=== PATIENT | female | born 1955 | race Caucasian/White ===

== ENCOUNTER 2019-06-10 07:41 | Day surgery (SDC) | payer MEDICARE, OTHER ==
[~2019-06-10 07:41] MED LIST: Lactated Ringers 1,000 ML IV SCH; Lidocaine 1%/Sod Bicarbonate in NS 8.4% 1 ML Syringe IDERM PRN; Sodium Chloride 0.9% 10 ML Syringe FLUSH PRN
[2019-06-10] MEDS ORDERED: fentaNYL 100 MCG/2 ML SDV ONE (07:59)
[2019-06-10] MEDS ORDERED: Midazolam 1 MG/ML 2 ML SDV ONE (07:59)
[2019-06-10] MEDS ORDERED: Propofol 200 MG/20 ML SDV ONE (07:59)
[2019-06-10] MEDS ORDERED: Scopolamine 1.5 MG Transdermal Patch TOP SCH (08:00)
[2019-06-10] MEDS ORDERED: Lidocaine 1% 6 ML ONE (08:00)
[2019-06-10] MEDS ORDERED: Ketamine 500 mg/10 ML MDV ONE (08:03)
--- NOTE | 2019-06-10 08:24 | PCM.PREANE ---
Preanesthetic Assessment - Procedure Proposed Procedure: Incisional breast biopsy - Anesthesia/Transfusion/Family Hx Anesthesia History: Prior Anesthesia Reaction Transfusion History: No Prior Transfusion(s) - Review of Systems General: No Symptoms Pulmonary: No Symptoms Cardiovascular: No Symptoms Gastrointestinal: No Symptoms Neurological: No Symptoms Other: Reports: None - Physical Assessment NPO Status Date: 06/09/19 NPO Status Time: 22:00 Mental Status: Alert & Oriented x3 Airway Class: Mallampati = 3 Dentition: Reports: Normal Dentition Thyro-Mental Finger Breadths: 3 Mouth Opening Finger Breadths: 3 ROM/Head Extension: Full Lungs: Clear to Auscultation, Normal Respiratory Effort Cardiovascular: Regular Rate, Regular Rhythm - Lab Values: Laboratory Last Values POC Glucose 82 mg/dL (80-115) 06/10/19 08:05 - Allergies Allergies/Adverse Reactions: Allergies Allergy/AdvReac Type Severity Reaction Status Date / Time tramadol HCl [From Ultram] Allergy Itching Verified 06/09/19 15:11 gabapentin AdvReac Hallucinati Verified 06/09/19 15:41 ons morphine AdvReac Hallucinati Verified 06/09/19 15:11 ons pregabalin [From Lyrica] AdvReac Hallucinati Verified 06/09/19 15:41 ons - Anesthesia Plan Beta Ecdrick: Atenolol Med Last Dose Date: 06/10/19 Med Last Dose Time: 22:00 - Acknowledgements Anesthesia Type Planned: General Anesthesia, MAC Pt an Appropriate Candidate for the Planned Anesthesia: Yes Alternatives and Risks of Anesthesia Discussed w Pt/Guardian: Yes Pt/Guardian Understands and Agrees with Anesthesia Plan: Yes PreAnesthesia Questionnaire HEENT History: Reports: Impaired Vision Other HEENT History: wears glasses, occipital neuralgia Cardiovascular History: Reports: CAD, High Cholesterol, Hypertension, [place], Stents Other Cardiovascular History: stents in 2002 and 2004, coronary atherosclerosis Other Respiratory History: Moderate snoring Gastrointestinal History: Reports: GI Bleed, PUD Other Gastrointestinal History: gastric ulcer; gastric bypass surgery 01/2009 Genitourinary History: Reports: Renal Calculus, Urinary Incontinence Other Genitourinary History: atrophic vaginitis, decreased kidney function, [employer]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: Reports: Other (See Below) Other OB/BYN History: vaginal discharge, vulvar vestibulitis Musculoskeletal History: Reports: Back Pain, Chronic, Osteoarthritis, Osteoporosis Other Musculoskeletal History: ankylosing spondylitis, myofascial pain Neurological History: Reports: Other (See Below) Other Neuro History: occipatal neuralgia Endocrine/Metabolic History: Reports: Hypothyroidism, Obesity/BMI 30+, Osteoporosis Other Endocrine/Metabolic History: abnormal glucose, diabetes which resolved with weight loss after gastric bypass, hashimotos Hematologic History: Reports: Blood Transfusion(s) Oncologic (Cancer) History: Reports: None - Past Surgical History HEENT Surgical History: Reports: Oral Surgery, Tonsillectomy Cardiovascular Surgical History: Reports: Coronary Artery Stent GI Surgical History: Reports: Bariatric Procedure, Cholecystectomy, Colonoscopy , EGD, Lysis of Adhesions Other GI Surgeries/Procedures: gastric bypass surgery 2008, lysis of adhesions Female Surgical History: Reports: Breast Biopsy, Cystoscopy, D&C, Lithotripsy /ESWL, Ureteral Stent Other Female Surgeries/Procedures: cystourethroscopy, lithotripsy Neurological Surgical History: Reports: Lumbar Spine Other Neurological Surgeries/Procedures: back surgery, L4L5, L4S2 Musculoskeletal Surgical History: Reports: Carpal Tunnel, Knee Replacement, Other (See Below) Other Musculoskeletal Surgeries/Procedures:: foot surgery, left hand tendon repair, left total knee replacement, meniscus tear and repair x2, right carpal tunnel release, left achilles tendon repair Oncologic Surgical History: Reports: None Dermatological Surgical History: Reports: None - SUBSTANCE USE Smoking Status *Q: Former Smoker Recreational Drug Use History: No - HOME MEDS Home Medications: Home Meds Pantoprazole [ProTONIX] 80 mg PO BEDTIME 03/30/15 [History] Pravastatin [Pravachol] 20 mg PO TUTH 03/30/15 [History] atenoloL [Atenolol] 12.5 mg PO BEDTIME 03/30/15 [History] Aspirin [Halfprin] 81 mg PO DAILY 03/03/18 [History] Certolizumab Pegol [Cimzia] 400 g SQ Q30D 03/03/18 [History] Cholecalciferol (Vitamin D3) [Vitamin D3] 5,000 unit PO DAILY 03/03/18 [History] Cyclobenzaprine [Flexeril] 10 mg PO BEDTIME PRN 03/03/18 [History] DULoxetine [Cymbalta] 30 mg PO DAILY 03/03/18 [History] Lysine 1,000 mg PO DAILY 03/03/18 [History] traZODone HCl [Trazodone HCl] 50 mg PO BEDTIME PRN 03/03/18 [History] Levothyroxine Sodium [Synthroid] 150 mcg PO DAILY 11/18/18 [History] Acetaminophen/oxyCODONE [Percocet 325-5 MG] 1 tab PO Q12H PRN 06/09/19 [History] DULoxetine [Cymbalta] 60 mg PO DAILY 06/09/19 [History] Lidocaine 4% [Xylocaine 4% Top Soln] 1 dose TOP QID PRN 06/09/19 [History] Pnv No.95/Ferrous Fum/Folic AC [ Caplet] 1 tab PO DAILY 06/09/19 [ History] predniSONE [Prednisone] 10 mg PO ASDIRECTED PRN 06/09/19 [History] - CURRENT (IN HOUSE) MEDS Current Meds: Current Medications Lactated Ringer's (Ringers, Lactated) 1,000 mls @ 125 mls/hr IV ASDIRECTED SUKHJINDER Stop: 06/10/19 23:00 Last Admin: 06/10/19 08:05 Dose: 125 mls/hr Lidocaine/Sodium Bicarbonate (Buffered Lidocaine 1% In Ns 8.4%) 0.25 ml IDERM ONETIME PRN PRN Reason: Prior to IV Start Stop: 06/10/19 18:00 Last Admin: 06/10/19 08:05 Dose: 0.25 ml Scopolamine (Transderm-Scop) 1.5 mg TOP ONETIME SUKHJINDER Stop: 06/10/19 18:00 Last Admin: 06/10/19 08:14 Dose: 1.5 mg Sodium Chloride (Saline Flush) 10 ml FLUSH ASDIRECTED PRN PRN Reason: Keep Vein Open Stop: 06/10/19 18:00 Discontinued Medications Fentanyl (Sublimaze) Confirm Administered Dose 100 mcg .ROUTE .STK-MED ONE Stop: 06/10/19 08:00 Lidocaine HCl (Xylocaine-Mpf 1%) Confirm Administered Dose 6 mls @ as directed .ROUTE .STK-MED ONE Stop: 06/10/19 08:01 Ketamine HCl (Ketalar) Confirm Administered Dose 500 mg .ROUTE .STK-MED ONE Stop: 06/10/19 08:04 Midazolam HCl (Versed 1 Mg/Ml) Confirm Administered Dose 2 mg .ROUTE .STK-MED ONE Stop: 06/10/19 08:00 Propofol (Diprivan 20 Ml) Confirm Administered Dose 600 mg .ROUTE .STK-MED ONE Stop: 06/10/19 08:00
[2019-06-10] MEDS ORDERED: Lidocaine 1% with EPINEPHrine 1:100,000 20 ML MDV ONE (08:57)
[2019-06-10] MEDS ORDERED: Bupivacaine 0.5%/EPINEPHrine 1:200,000 50 ML MDV ONE (08:58)
[2019-06-10] MEDS ORDERED: Ondansetron 4 MG/2 ML SDV ONE (10:46)
[2019-06-10] MEDS ORDERED: ceFAZolin 1 GM Vial ONE (11:08)
--- NOTE | 2019-06-10 11:18 | PCM.OPNOTE ---
- General Post-Op/Procedure Note Date of Surgery/Procedure: 06/10/19 Operative Procedure(s): right breast excisional biopsy Findings: right breast calcifications with localization wire in place Pre Op Diagnosis: right breast calcifications Post-Op Diagnosis: same Anesthesia Technique: MAC Primary Surgeon: Mouna Carson Anesthesia Provider: Edmond Cruz Pathology: right breast specimen Fluid Replacement, Intraop: 900 EBL in mLs: 3 Complications: None apparent Condition: Good
--- NOTE | 2019-06-10 11:20 | PCM48HPAN ---
Post Anesthesia Note - EVALUATION WITHIN 48HRS OF ANESTHETIC Vital Signs in Normal Range: Yes Patient Participated in Evaluation: Yes Respiratory Function Stable: Yes Airway Patent: Yes Cardiovascular Function Stable: Yes Hydration Status Stable: Yes Pain Control Satisfactory: Yes Nausea and Vomiting Control Satisfactory: Yes Mental Status Recovered: Yes Vital Signs: Last Vital Signs Temp 97.6 F 06/10/19 11:12 Pulse 81 06/10/19 11:12 Resp 14 06/10/19 11:12 BP 112/58 L 06/10/19 11:12 Pulse Ox 97 06/10/19 11:12
--- NOTE | 2019-06-10 11:31 | PCM.PRNOTE ---
- Free Text/Narrative Note: DATE OF PROCEDURE: PROCEDURE: Right breast excisional biopsy PREOP DX: Right breast calcifications POSTOP DX: same SURGEON: Mouna Carson MD [facility] ATTENDANT: Edmond Cruz CRNA ANESTHETIC: MAC EBL: 3 mL IVF: 900 mL UOP: 0 mL FINDINGS: Right breast calcifications with localization wire in place PATHOLOGY: Right breast mass INDICATION: The patient is a 64-year old lady who initially presented with calcifications in the right breast. She was originally scheduled for stereotactic biopsy, however, the calcifications were 2 shallow foreign accurate biopsy. She presented for excisional biopsy of this area. The patient strongly feels that she would like to have this lesion removed. The risks, benefits, alternative and rationale of surgery explained including the risk of not operating, bleeding, infection, seroma or hematoma. Informed consent was obtained for excisional biopsy right breast wire localization. DESCRIPTION OF THE PROCEDURE: The patient was brought to the operating room and placed in supine position on the operating table. MAC anesthesia was induced without difficulty. Preoperative antibiotics were administered according to SCIP guidelines. The right chest and axilla were prepped and draped in a sterile fashion. A surgical timeout was performed. The incision was marked along the inferior rest near the inframammary fold. The incision was elliptical and included the wire. We began by injecting local anesthetic into the area of the incision. An incision was made and flaps were raised orienting the specimen to the area of the localization wire. The specimen was dissected from the surrounding tissues using the Bovie device. The specimen was oriented and sent to mammography for analysis of clip and wire placement in the specimen. The remaining cavity was inspected to ensure hemostasis and no additional abnormalities. Hemostasis was achieved using the Bovie device. Cavity was irrigated using sterile water. Once mammography confirmed placement of the calcifications and wire in the specimen with appropriate orientation, the subcutaneous tissue was re- approximated with interrupted 3-0 vicryl sutures in the cavity and in the dermal tissue. The skin was closed with 4-0 Monocryl sub-cuticular running suture. Dermabond surgical glue was used to cover the skin. All instrument and sponge counts were correct. The patient was extubated and transferred to the PACU in stable condition. Mouna Carson MD General Surgery
[2019-06-10 12:39] VITALS: BP 126/68; PULSE 66
--- NOTE | 2019-06-11 08:20 | MY ---
Specimen radiograph: Single view was obtained of surgical specimen. Wire is noted. Calcification is seen which is felt compatible with successful biopsy. Impression: 1. Specimen radiograph contains a calcification which is felt compatible with successful biopsy. Diagnostic code #2 This report was dictated in [place] Standard Time
--- NOTE | 2019-06-11 08:20 | MY ---
Needle localization of calcifications within right breast Procedure was explained to the patient. Patient agreed to the exam. Calcification directly below the skin inferiorly was localized. Patient then prepped and draped in the usual fashion. Needle was placed and confirmed in position. [place] wire then placed and confirmed. Two-view mammogram study then obtained showing the wire in place. Impression: 1. Successful needle localization of right breast calcification. Diagnostic code #2 This report was dictated in [place] Standard Time
== END 2019-06-10 12:16 | disposition home or self-care (01) ==
LOC: JD.SDS 07:41 → EDSTATUS 08:00 → JD.SDS 12:16
PROVIDERS: ATTEND Surgery
DX: N64.89 Other specified disorders of breast (principal); I25.10 Atherosclerotic heart disease of native coronary artery without angina pectoris; E11.9 Type 2 diabetes mellitus without complications; E66.01 Morbid (severe) obesity due to excess calories; M19.90 Unspecified osteoarthritis, unspecified site; E78.5 Hyperlipidemia, unspecified; I10 Essential (primary) hypertension; E03.9 Hypothyroidism, unspecified; Z88.5 Allergy status to narcotic agent; Z88.8 Allergy status to other drugs, medicaments and biological substances; Z87.891 Personal history of nicotine dependence; Z79.899 Other long term (current) drug therapy; Z79.82 Long term (current) use of aspirin; Z79.891 Long term (current) use of opiate analgesic; Z68.31 Body mass index [BMI] 31.0-31.9, adult
CPT/HCPCS: 19101; 19281; 19283; 76098; 82962; 88307; A9270; J0690; J2001; J2250; J2405; J2704; J3010; J3490; J7120; 00400